=== PATIENT | male | born 1990 | race Caucasian/White ===

== ENCOUNTER 2024-10-03 16:33 | Emergency (ER) | payer OTHER, SELFPAY ==
[2024-10-03 16:35] VITALS: BP 142/93
[2024-10-03 17:01] VITALS: BMI 28.2
--- NOTE | 2024-10-03 18:40 | ED.SKININJ ---
HPI-Injury
General
Chief Complaint: Bite
Source: patient
Exam Limitations: none
Time Seen by Provider: 10/03/24 18:27
History of Present Illness-Injury
Initial Injury comments:
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 He was evicting a homeless gentleman from his car and there was a dog in the car and bit him. Exact status of the dog is unknown. He is seen at the urgent care and sent here for
rabies vaccination. He has never been immunized before. He notes a superficial bite to the left forearm. Last tetanus is unknown. No other complaints
Past History
Past History
ED Past Medical History: None
ED Past Surgical History: None
Phy Exam
Physical Exam
Physical Exam:
General: Well-appearing male no acute respiratory distress
Skin: Superficial bite lidia and abrasion to the dorsal aspect of left forearm no significant swelling or surrounding erythema
Extremities: No cyanosis
Course
Orders/Labs/Results
Orders:
Orders
10/03/24 18:39
Amoxicillin 875 mg/Clav 125 mg [Augmentin 875 mg/125 mg] 1 tablet PO NOW STA
Rabies Immune Globulin/Pf [HyperRAB] 1,633 unit IM NOW STA
Rabies Vaccine (Pcec)/Pf [Rabavert Rabies Vacc W-Diluent] 2.5 unit IM .ONCE ONE
Tetanus/Diphth/Acelpertussis [Adacel] 0.5 ml IM .ONCE ONE
Vital Signs
Initial and Last Documented VS:
Initial Vital Signs
Temp Pulse Resp BP Pulse Ox
98.7 F 79 18 142/93 99
10/03/24 16:35 10/03/24 16:35 10/03/24 16:35 10/03/24 16:35 10/03/24 16:35
Last Documented Vital Signs
Temp Pulse Resp BP Pulse Ox
98.7 F 79 18 142/93 99
10/03/24 16:35 10/03/24 16:35 10/03/24 16:35 10/03/24 16:35 10/03/24 16:35
MDM/Problems Addressed
Differential Diagnosis Includes:
Dog bite. Unknown status of the dog unknown location of the dog. Discussed rabies vaccination which patient desired. He received a tetanus vaccine. He received his first dose of the rabies vaccine and immunoglobulin and his first dose of the
Augmentin. He was referred to the outpatient infusion center for the remaining 3 rabies vaccine
*Critical Care Note
Total Time (30-74mins, 75-104mins- exclusive of procedures): Not Applicable
ED Attending Note
-
Portions of this chart may have been created with voice recognition software.� Occasional wrong word or��sound alike� substitutions may have occurred due to the inherent limitations of voice recognition software.
Discharge Plan
Departure
Patient Disposition: Home (Routine Discharge)
Date of Disposition: 10/03/24
Time of Disposition: 18:45
Patient with high blood pressure during this ER visit?: No
Discharge Problem:
Rabies, need for prophylactic vaccination against, Dog bite
Instructions: Rabies
Prescriptions:
New
RabAvert (PF) 2.5 unit Suspension For Reconstitution
1 ml IM . DIRECTED Qty: 3 0RF
Rx Instructions:
See Rabies Vaccine Post Exposure Prophylaxis Instruction Sheet for Dosing Instructions
Referrals:
NONE,* [Family Provider] -
Stand Alone Forms: Rabies Vaccine Post Exp Dosing
Activity Restrictions/Additional Instructions:
Take your prescribed antibiotic as directed. Follow-up with the outpatient infusion center for the remaining 3 rabies vaccines. Call tomorrow to set an appointment for Monday. Return here if needed otherwise.
Interventions
Interventions:
*Risk Screen - Suicide Last Done: 10/03/24 16:35
*General Assessment Last Done: 10/03/24 16:35
*Neglect/Abuse Screening Last Done: 10/03/24 16:35
*ED COVID-19 Vaccine History Last Done: 10/03/24 16:35
ED-Skin Assessment Last Done: 10/03/24 17:01
Discharge Date and Time
Print Language: CAMBODIAN
[2024-10-03] MEDS: AUGMENTIN 875 MG/125 MG 1 TABLET PO (19:11)
[2024-10-03] MEDS: ADACEL 0.5 ML IM (19:13)
[2024-10-03] MEDS: HyperRAB 1633 UNIT IM (19:32)
[2024-10-03] MEDS: RABAVERT RABIES VACC W-DILUENT 2.5 UNIT IM (19:46)
[2024-10-03 20:00] VITALS: BP 138/88
== END 2024-10-03 20:02 | disposition home or self-care (01) ==
LOC: EMR 16:33
PROVIDERS: EMERGENCY PHYSICIAN Emergency Medicine
DX: Z20.3 Contact with and (suspected) exposure to rabies (principal); S50.872A Other superficial bite of left forearm, initial encounter; W54.0XXA Bitten by dog, initial encounter; Y99.0 Civilian activity done for income or pay; Z23 Encounter for immunization; Z29.14 Encounter for prophylactic rabies immune globulin
CPT/HCPCS: 90471; 90472; 96372; 99284; 90375; 90675; 90715

== ENCOUNTER 2024-10-17 10:47 | Outpatient (RCR) | payer OTHER, SELFPAY ==
[2024-10-07 11:43] VITALS: BP 130/85
[2024-10-07] MEDS: RABAVERT RABIES VACC W-DILUENT 2.5 UNIT IM (11:45)
[2024-10-10] MEDS: RABAVERT RABIES VACC W-DILUENT 2.5 UNIT IM (11:01)
[2024-10-17 10:57] VITALS: BP 120/76
[2024-10-17] MEDS: RABAVERT RABIES VACC W-DILUENT 2.5 UNIT IM (11:03)
== END 2024-10-18 10:07 | disposition home or self-care (01) ==
LOC: OID 10:47
PROVIDERS: ATTENDING PHYSICIAN Physician Assistant
DX: Z20.3 Contact with and (suspected) exposure to rabies (principal); Z23 Encounter for immunization
CPT/HCPCS: 90471; 90675